=== PATIENT | female | born 1995 | race African-American/Black ===

== ENCOUNTER 2018-04-26 12:00 | Emergency (ER) | payer OTHER ==
[~2018-04-26] VITALS: Ht 162.6 cm; Wt 54.1 kg
[2018-04-26] MEDS ORDERED: IBUPROFEN 400 MG TABLET PO ONE (13:00)
[2018-04-26] MEDS ORDERED: ACETAMINOPHEN 500 MG TABLET PO ONE (13:00)
[2018-04-26 14:55] VITALS: BP 105/64
== END 2018-04-26 15:30 | disposition home or self-care (01) ==
LOC: EMS 12:01
DX: S50.01XA Contusion of right elbow, initial encounter (principal); M79.631 Pain in right forearm; R03.0 Elevated blood-pressure reading, without diagnosis of hypertension; F17.210 Nicotine dependence, cigarettes, uncomplicated; W01.0XXA Fall on same level from slipping, tripping and stumbling without subsequent striking against object, initial encounter; Y93.89 Activity, other specified; Y92.89 Other specified places as the place of occurrence of the external cause; Y99.8 Other external cause status